=== PATIENT | male | born 1950 | race African-American/Black ===

== ENCOUNTER → 2019-06-29 | Outpatient (CLI) | payer OTHER ==
--- NOTE | 2019-06-29 07:48 | RAD ---
Examination: SCAN OF ABDOMINAL AORTA History: Abdominal aortic aneurysm Comparison/Correlation: None Findings: Abdominal aortic ultrasound exam was performed. The proximal abdominal aorta measures 2.7 cm diameter. Mid abdominal aortic diameter is 2.2 cm. Distal abdominal aortic diameter is 2.1 cm. Mild atheromatous involvement of the abdominal aorta is present. Impression: No abdominal aortic aneurysm. Electronically signed by: Deo Bryson MD (06/29/2019 7:45 AM) [id number]
== END | disposition home or self-care (01) ==
LOC: US 06:21
PROVIDERS: ATTEND Physician Assistant Medical
DX: Z13.6 Encounter for screening for cardiovascular disorders (principal); I70.0 Atherosclerosis of aorta; Z87.891 Personal history of nicotine dependence
CPT/HCPCS: 76770

== ENCOUNTER → 2019-09-18 | Outpatient (CLI) | payer OTHER | END | disposition home or self-care (01) | LOC: LAB 13:14 | PROVIDERS: ATTEND Internal Medicine Gastroenterology | DX: Z01.818 Encounter for other preprocedural examination (principal); Z11.59 Encounter for screening for other viral diseases | CPT/HCPCS: C9803; U0003; 36415 ==

== ENCOUNTER → 2019-09-23 | Day surgery (SDC) | payer OTHER ==
[~2019-09-23] MED LIST: IV RINGERS,LACTATED 1000ML 1,000 ML IV ONE; PROPOFOL 10 MG/ML (20ML) VIAL. IV ONE
[2019-09-23 08:05] VITALS: BP 110/71
--- NOTE | 2019-09-23 10:16 | HP ---
ADMIT DATE: 09/23/2019 UPDATED HISTORY AND PHYSICAL REFERRING PHYSICIAN: Dr. Per Putnam. REASON: Colorectal screening. HISTORY OF PRESENT ILLNESS: A 69-year-old -[place] male with past medical history significant for low back surgery for lumbar fusion, who is seen for interval colonoscopy. Previous exam was done in 2006 without abnormalities. There is no bleeding, hematochezia, melena, diarrhea, or constipation. Weight and appetite are stable. Family history is unrevealing for colon polyps or colon cancers, otherwise without additional complaints. PAST MEDICAL HISTORY: Osteoarthritis. ALLERGIES: None. MEDICATIONS: None. PAST SURGICAL HISTORY: Status post lumbar fusion. FAMILY AND SOCIAL HISTORY: He does not smoke. He is a social drinker. Sister with high blood pressure. REVIEW OF SYSTEMS: HEENT: There is no decrease in visual acuity issues. CARDIAC: No history of hypertension, palpitations, syncope. PULMONARY: No shortness breath, productive cough, or asthma. RENAL: No dysuria, frequency, hematuria. NEUROLOGIC: No stroke, migraine, ____. PSYCHIATRIC: No mood swings, depression, insomnia. MUSCULOSKELETAL: History of osteoarthrosis. GASTROINTESTINAL: See history of present illness. HEMATOLOGIC: No bleeding, bruising, coagulopathy. DERMATOLOGIC: No skin rashes or pruritus. PHYSICAL EXAMINATION: GENERAL: Reveals a well-nourished, well-developed -[place] male who is alert, cooperative, in no acute distress. VITAL SIGNS: Temperature is 97.6, pulse 88, respirations 20. LUNGS: Clear. CARDIOVASCULAR: Reveals an S1, S2 without S3, S4, or appreciable murmur. ABDOMEN: Reveals a soft abdomen, normal bowel sounds, without appreciable hepatosplenomegaly. EXTREMITIES: Reveals no cyanosis, clubbing, or edema. IMPRESSION: Colorectal screening is warranted at this time. Risks and benefits of procedure including risk of perforation during the operation have been discussed. The patient is willing to proceed at this time. VERONIQUE GOLDSMITH MD DR: DALE/nts JOB#: [id number] / [id number] Per Arrington ,
== END ==
LOC: ENDOS 05:59
PROVIDERS: ATTEND Internal Medicine Gastroenterology
DX: Z12.11 Encounter for screening for malignant neoplasm of colon (principal); K57.30 Diverticulosis of large intestine without perforation or abscess without bleeding; K64.0 First degree hemorrhoids; Z72.89 Other problems related to lifestyle; Z98.890 Other specified postprocedural states
CPT/HCPCS: G0105; J2704; 45378